=== PATIENT | male | born 2005 | race Caucasian/White ===

== ENCOUNTER 2024-11-13 17:19 | Emergency (ER) | payer SELFPAY ==
--- NOTE | 2024-11-13 17:21 | ED.GENADULT ---
HPI - General Adult General Chief complaint: Upper Respiratory Infection Stated complaint: Swollen glands neck Time Seen by Provider: 11/13/24 17:31 Source: patient, RN notes reviewed and old records reviewed Mode of arrival: ambulatory Limitations: no limitations History of Present Illness HPI narrative: 19-year-old male presents to the [facility] with complaints of a swollen gland to the right side of the neck. States that both right and left upper swollen and started approximately October 16. Was seen at [facility] in [place] for a rash to the genital area. Patient at that time was prescribed acyclovir. affect a with self, was started on cephalexin. States that he did take all the antibiotics and antiviral, states he still having a swollen gland to the right side of neck. No erythema. No sore throat. Denies ear pain. Denies fevers. Onset (ago): month(s) (1) Related Data Home Medications ?Medication ?Instructions ?Recorded ?Confirmed ?Last Taken ?Type Accutane 11/13/24 Unknown History Allergies Allergy/AdvReac Type Severity Reaction Status Date / Time No Known Allergies Allergy Verified 11/13/24 17:32 Review of Systems Review of Systems: All systems reviewed & are unremarkable except as noted in HPI and below Constitutional: Constitutional: Reports no additional constitutional complaints ENT: Reports as per HPI Cardiovascular: Cardiovascular: Reports no additional cardiovascular complaints, Denies chest pain and Denies dyspnea Respiratory: Respiratory: Reports no additional respiratory complaints, Denies chest congestion, Denies cough and Denies dyspnea Musculoskeletal: Musculoskeletal: Reports no additional musculoskeletal complaints Integumentary/Breasts: Skin/Breast: Reports system reviewed and no additional complaints, except as docu PMFSH Comments At the time of my signature, I reviewed and agree with the nursing past medical, surgical, social, and family history. There is no relevant family history pertinent to the patient complaint. Exam Const: General: cooperative, healthy appearing, comfortable, no acute distress, well developed, alert and well nourished Nutritional Appearance: well nourished Orientation/consciousness: patient oriented x3 Limitations: no limitations HENMT: Head: normal to inspection Ears: hearing grossly normal bilaterally, external ears normal, TM's normal bilaterally, EAC's normal, mastoids normal and no periauricular adenopathy Face/Nose/Sinus: Normal external nose present, Normal nares present, Normal nasal mucous membranes and turbinates present and No nasal discharge present Face and sinus: normal facial exam and face symmetric Mouth: Yes Normal oral and palatal mucosa present, Yes lip normal, Yes tongue normal and Yes moist mucous membranes Throat: posterior oropharynx normal, tonsils normal, uvula midline and no uvular edema Eyes: General: appearance normal, both eyes and all related structures Alignment and Position: alignment normal Neck: Neck: normal visual inspection, full ROM, no meningeal signs, trachea midline, supple, lymphadenopathy right submandibular normal, rubbery and mobile; not warm and nontender and no midline deformity Chest: Chest palpation & inspection: normal inspection of the chest Resp: Effort & Inspection: normal respiratory effort and able to speak in complete sentences Auscultation: clear to auscultation bilaterally, no crackles, no rales, no rhonchi and no wheezes Cardio: Rate: regular rate Skin: General skin exam: normal color and no rashes or lesions noted Neuro: General: patient oriented x3, gait normal, moves all extremities and no meningeal signs Cognition (Neuro): normal cognition Speech: normal speech Gait exam (Neuro): Normal gait present Extrem: General: normal to inspection, full ROM, capillary refill normal and normal gait Psych: Appearance: grossly normal and well kempt Mental Status: mental status grossly normal Speech and movement: Normal speech and movement present and Clear speech present Affect: normal affect Attitude: cooperative Course Course Level of Care: Express Care Visit Vital Signs Vital signs: Vital Signs Temperature 99.1 F 11/13/24 17:26 Pulse Rate 80 11/13/24 17:26 Respiratory Rate 20 11/13/24 17:26 Blood Pressure 124/68 11/13/24 17:26 Pulse Oximetry 99 11/13/24 17:26 Oxygen Delivery Room Air 11/13/24 17:26 Temperature 99.1 F 11/13/24 17:26 Pulse Rate 80 11/13/24 17:26 Respiratory Rate 20 11/13/24 17:26 Blood Pressure 124/68 11/13/24 17:26 Pulse Oximetry 99 11/13/24 17:26 Oxygen Delivery Room Air 11/13/24 17:26 Reviewed Medical Decision Making MDM Narrative Medical decision making narrative: Patient sitting comfortably in exam room. Nontoxic, vitals stable. Patient in no acute distress Patient presents for Continued swelling of a lymph node to the right neck. Area is mobile. No erythema. No signs of a bacterial infection on exam of ENT. Lungs are clear. Patient has already completed a round of antibiotics as rib well as an antiviral. Patient appropriate for outpatient treatment and follow-up. Additional information about swollen glands had been given from [facility]. Discharge instructions reviewed with patient, as well as provided in writing per nursing staff. The instructions also include specific and strict return/GO TO THE ER as well as f/u information. All questions have been answered, and the patient deny any further questions with discharge and discharge plan. Some parts of this dictation were generated by voice recognition software and may contain typographical and/or grammatical inaccuracies. Differential Diagnosis Differential Diagnosis: [place], viral infection, bacterial infection Medical Records Medical records reviewed: Yes I reviewed the external patient's medical records. Vital Signs Vital Signs: Vital Signs Temperature 99.1 F 11/13/24 17:26 Pulse Rate 80 11/13/24 17:26 Respiratory Rate 20 11/13/24 17:26 Blood Pressure 124/68 11/13/24 17:26 Pulse Oximetry 99 11/13/24 17:26 Oxygen Delivery Room Air 11/13/24 17:26 Temperature 99.1 F 11/13/24 17:26 Pulse Rate 80 11/13/24 17:26 Respiratory Rate 20 11/13/24 17:26 Blood Pressure 124/68 11/13/24 17:26 Pulse Oximetry 99 11/13/24 17:26 Oxygen Delivery Room Air 11/13/24 17:26 Reviewed Lab Data Lab results reviewed: Yes I reviewed the patient's lab results. Labs: Reviewed Critical Care Time Critical Care Time Critical Care Time: No Discharge Plan Discharge Clinical Impression: Lymph node enlargement Patient Disposition: Home, Self-Care Condition: Stable Instructions: Antibiotic Form, Lymphadenopathy (ED) Additional Instructions: enlarged lymph nodes can be caused also by viral infections such as the common cold, mononucleosis. Follow-up with primary care provider Patient Language: Other Prescriptions: No Action Accutane Follow-up/Referrals: UNKNOWN,DOCTOR [Non-Staff] - Stand Alone Forms: Work/School Release IP Time of Disposition: 17:48
[2024-11-13 17:26] VITALS: BP 124/68; PULSE 80; RESP 20; TEMP 37.3; O2SAT 99
== END 2024-11-13 17:56 | disposition home or self-care (01) ==
PROVIDERS: Emergency Provider Nurse Practitioner
DX: R59.0 Localized enlarged lymph nodes (principal)
CPT/HCPCS: 99202; G0463